=== PATIENT | male | born 1980 | race Caucasian/White ===

== ENCOUNTER 2019-01-02 15:18 | Observation (INO) | payer SELFPAY ==
--- NOTE | 2019-01-02 15:30 | EDM.PDOC ---
ED HPI GENERAL MEDICAL PROBLEM - General Chief Complaint: Behavioral/Psych Stated Complaint: CLEARANCE Time Seen by Provider: 01/02/19 15:22 - History of Present Illness INITIAL COMMENTS - FREE TEXT/NARRATIVE: HISTORY AND PHYSICAL: History of present illness: Patient is a 38-year-old male who presents status post intentional overdose of Tylenol PM approximately 2 hours prior to arrival that is qualified as having ingested approximately 20 Tylenol PM. He denies other ingestion or concern and denies other medical problems patient denies suicidal ideation at this time has been cooperative and polite and is agreeable to admission for observation and disposition as appropriate Review of systems: As per history of present illness and below otherwise all systems reviewed and negative. Past medical history: As per history of present illness and as reviewed below otherwise noncontributory. Surgical history: As per history of present illness and as reviewed below otherwise noncontributory. Social history: No reported history of drug or alcohol abuse. Family history: As per history of present illness and as reviewed below otherwise noncontributory. Physical exam: HEENT: Atraumatic, normocephalic, pupils reactive, negative for conjunctival pallor or scleral icterus, mucous membranes moist, throat clear, neck supple, nontender, trachea midline. Lungs: Clear to auscultation, breath sounds equal bilaterally, chest nontender. Heart: S1S2, regular, negative for clicks, rubs, or JVD. Abdomen: Soft, nondistended, nontender. Negative for masses or hepatosplenomegaly. Negative for costovertebral tenderness. Pelvis: Stable nontender. Genitourinary: Deferred. Rectal: Deferred. Extremities: Atraumatic, negative for cords or calf pain. Neurovascular unremarkable. Neuro: Awake, alert, oriented. Cranial nerves II through XII unremarkable. Cerebellum unremarkable. Motor and sensory unremarkable throughout. Exam nonfocal. Diagnostics: Psychiatric panel Therapeutics: IV monitor Impression: #1 intentional nonlethal overdose #2 depressive episode Definitive disposition and diagnosis as appropriate pending reevaluation and review of above. - Related Data Allergies Allergy/AdvReac Type Severity Reaction Status Date / Time No Known Allergies Allergy Verified 01/02/19 15:21 Home Meds: Home Meds . [No Known Home Meds] 01/02/19 [History] ED ROS GENERAL - Review of Systems Review Of Systems: Comprehensive ROS is negative, except as noted in HPI. ED EXAM, GENERAL - Physical Exam Exam: See Below (Dictation) Course - Orders/Labs/Meds Orders: Active Orders 24 hr Category Date Time Status EKG Documentation Completion [RC] STAT Care 01/02/19 15:23 Active ACETAMINOPHEN [CHEM] Stat Lab 01/02/19 15:23 Ordered CBC WITH AUTO DIFF [HEME] Stat Lab 01/02/19 15:23 Ordered COMPREHENSIVE METABOLIC PN,CMP [CHEM] Stat Lab 01/02/19 15:23 Ordered DRUG SCREEN, URINE [URCHEM] Stat Lab 01/02/19 15:23 Ordered ETHANOL BLOOD MEDICAL [CHEM] Stat Lab 01/02/19 15:23 Ordered SALICYLATE [CHEM] Stat Lab 01/02/19 15:23 Ordered TSH [CHEM] Stat Lab 01/02/19 15:23 Ordered UA RFX MEHREEN AND CULT IF INDIC [URIN] Stat Lab 01/02/19 15:25 Ordered Departure - Departure Time of Disposition: 15:31 Disposition: Refer to Observation Condition: Good Clinical Impression: Overdose, Depressive episode - Discharge Information - My Orders Last 24 Hours: My Active Orders 01/02/19 15:23 EKG Documentation Completion [RC] STAT ACETAMINOPHEN [CHEM] Stat CBC WITH AUTO DIFF [HEME] Stat COMPREHENSIVE METABOLIC PN,CMP [CHEM] Stat DRUG SCREEN, URINE [URCHEM] Stat ETHANOL BLOOD MEDICAL [CHEM] Stat SALICYLATE [CHEM] Stat TSH [CHEM] Stat 01/02/19 15:25 UA RFX MEHREEN AND CULT IF INDIC [URIN] Stat - Assessment/Plan Last 24 Hours: My Active Orders 01/02/19 15:23 EKG Documentation Completion [RC] STAT ACETAMINOPHEN [CHEM] Stat CBC WITH AUTO DIFF [HEME] Stat COMPREHENSIVE METABOLIC PN,CMP [CHEM] Stat DRUG SCREEN, URINE [URCHEM] Stat ETHANOL BLOOD MEDICAL [CHEM] Stat SALICYLATE [CHEM] Stat TSH [CHEM] Stat 01/02/19 15:25 UA RFX MEHREEN AND CULT IF INDIC [URIN] Stat
[2019-01-02 16:22] LABS: ACETAMINOPHEN <2.0 ug/mL
[2019-01-02 16:30] LABS: BLOOD UREA NITROGEN,BUN 24 mg/dL (7.0-18.0); CARBON DIOXIDE,CO2 23.9 mmol/L (21.0-32.0); CHLORIDE,CL 100 mmol/L (98-107); GLUCOSE RANDOM 88 mg/dL (74-106); POTASSIUM,K 3.3 mmol/L (3.5-5.1); SODIUM,NA 137 mmol/L (136-148)
--- NOTE | 2019-01-02 17:05 | CR ---
Indication: Overdose. Technique: A single AP portable view of the chest was obtained. Comparison: None Findings: The heart is normal in size. The lungs are clear. No infiltrate, pleural effusion, or pneumothorax is identified. Impression: No acute cardiopulmonary process. Dictated by Josefina Buckley MD @ Jan 02 2019 5:03PM Signed by Dr. Josefina Buckley @ Jan 02 2019 5:03PM
[2019-01-02] MEDS ORDERED: Ibuprofen 600 MG Tab PO PRN (17:48)
[2019-01-02] MEDS ORDERED: Ondansetron 4 MG Tab.DIS PO PRN (17:48)
[2019-01-02] MEDS ORDERED: Ondansetron 4 MG/2 ML SDV IVPUSH PRN (17:48)
[2019-01-02] MEDS ORDERED: Bisacodyl 5 MG Tab PO PRN (17:48)
[2019-01-02] MEDS ORDERED: Polyethylene Glycol 3350 Powder 17 GM Packet PO PRN (17:48)
[2019-01-02] MEDS ORDERED: Sodium Chloride 0.9% 10 ML Syringe FLUSH PRN (17:48)
[2019-01-02] MEDS ORDERED: Sodium Chloride 0.9% 10 ML SDV IV PRN (17:48)
[2019-01-02] MEDS ORDERED: Sodium Chloride 0.9% 2.5 ML Syringe FLUSH PRN (17:48)
[2019-01-02] MEDS ORDERED: Activated Charcoal/Water Susp 50 GM/240 ML Tube PO ONE (17:55)
[2019-01-02] MEDS ORDERED: Enoxaparin 40 MG/0.4 ML Syringe SUBCUT SCH (18:00)
[2019-01-02] MEDS ORDERED: Sodium Chloride 0.9% 1,000 ML IV SCH (18:00)
--- NOTE | 2019-01-02 18:10 | PCM.HP.2 ---
<Ediun Vergara - Last Filed: 01/02/19 18:42> H&P History of Present Illness - General Date of Service: 01/02/19 Admit Problem/Dx: Admission Diagnosis/Problem Admission Diagnosis/Problem Overdose of analgesic - History of Present Illness Initial Comments - Free Text/Narative: 38 y/o male who presented to the ER via EMS and law enforcement. Apparently, the patient had intentionally ingested a large amount of Tylenol PM. When asked how many, he states at least 16 pills. He states that he intentionally ingested the pills since he was having some family troubles. Time of ingestion was approximately 2 hours prior to ER arrival at 1500 hrs. He denies any previous attempts at hurting himself. No history of depression or anxiety. Denies taking any antidepressants or other medications. When I evaluated the patient in the ER, he was laying in bed. Eyes closed but would respond to questions. He denies any active suicidal ideation at this time. Initial acetaminophen level <2 at about 1600 hrs. Repeat acetaminophen level pending. - Related Data Allergies/Adverse Reactions: Allergies Allergy/AdvReac Type Severity Reaction Status Date / Time No Known Allergies Allergy Verified 01/02/19 18:43 Past Medical History - Past Surgical History Other Musculoskeletal Surgeries/Procedures:: Left knee pain Social & Family History - Family History Family Medical History: Noncontributory - Tobacco Use Smoking Status *Q: Never Smoker Second Hand Smoke Exposure: No - Caffeine Use Caffeine Use: Reports: None - Recreational Drug Use Recreational Drug Use: No H&P Review of Systems - Review of Systems: Review Of Systems: Comprehensive ROS is negative, except as noted in HPI. Exam - Exam Exam: See Below - Vital Signs Vital Signs: Last Vital Signs Temp 36.4 C 01/02/19 15:21 Pulse 85 01/02/19 17:50 Resp 15 01/02/19 17:50 BP 124/88 01/02/19 17:50 Pulse Ox 98 01/02/19 17:50 Weight: 81.647 kg - Exam General: Other (laying in bed with eyes closed but responds to questions. No acute distress.) HEENT: Other (dry oral mucosa) Lungs: Clear to Auscultation, Normal Respiratory Effort. No: Crackles, Wheezing Cardiovascular: Regular Rate, Regular Rhythm GI/Abdominal Exam: Normal Bowel Sounds, Soft, Non-Tender, No Distention Extremities: Normal Inspection, Non-Tender, No Pedal Edema Skin: Warm, Dry Neuro Extensive - Mental Status: Alert, Oriented x3 - Patient Data Lab Results Last 24 hrs: Laboratory Results - last 24 hr 01/02/19 01/02/19 01/02/19 Range/Units 15:55 15:55 15:55 WBC 8.06 (4.0-11.0) K/uL RBC 5.15 (4.50-5.90) M/uL Hgb 16.2 (13.0-17.0) g/dL Hct 45.5 (38.0-50.0) % MCV 88.3 (80.0-98.0) fL MCH 31.5 (27.0-32.0) pg MCHC 35.6 (31.0-37.0) g/dL RDW Std Deviation 40.3 (28.0-62.0) fl RDW Coeff of Kailash 13 (11.0-15.0) % Plt Count 298 (150-400) K/uL MPV 9.90 (7.40-12.00) fL Neut % (Auto) 62.1 (48.0-80.0) % Lymph % (Auto) 25.3 (16.0-40.0) % Burke % (Auto) 10.5 (0.0-15.0) % Eos % (Auto) 1.7 (0.0-7.0) % Baso % (Auto) 0.4 (0.0-1.5) % Neut # (Auto) 5.0 (1.4-5.7) K/uL Lymph # (Auto) 2.0 (0.6-2.4) K/uL Burke # (Auto) 0.9 H (0.0-0.8) K/uL Eos # (Auto) 0.1 (0.0-0.7) K/uL Baso # (Auto) 0.0 (0.0-0.1) K/uL Nucleated RBC % 0.0 /100WBC Nucleated RBCs # 0 K/uL INR 1.03 Sodium 137 (136-148) mmol/L Potassium 3.3 L (3.5-5.1) mmol/L Chloride 100 (98-107) mmol/L Carbon Dioxide 23.9 (21.0-32.0) mmol/L BUN 24 H (7.0-18.0) mg/dL Creatinine 1.2 (0.8-1.3) mg/dL Est Cr Clr Drug Dosing 85.34 mL/min Estimated GFR (MDRD) > 60.0 ml/min Glucose 88 (74-106) mg/dL Calcium 9.2 (8.5-10.1) mg/dL Total Bilirubin 1.2 H (0.2-1.0) mg/dL AST 41 H (15-37) IU/L ALT 35 (14-63) IU/L Alkaline Phosphatase 80 (46-116) U/L Total Protein 8.1 (6.4-8.2) g/dL Albumin 4.4 (3.4-5.0) g/dL Globulin 3.7 (2.6-4.0) g/dL Albumin/Globulin Ratio 1.2 (0.9-1.6) TSH 3rd Generation 1.61 (0.36-3.74) uIU/mL Salicylates 1.5 (0-20) mg/dL Acetaminophen <2.0 ug/mL Ethyl Alcohol 4 mg/dL Result Diagrams: 01/02/19 15:55 01/02/19 15:55 Problem List Initiated/Reviewed/Updated: Yes Orders Last 24hrs: Active Orders 24 hr Category Date Time Status Patient Status [ADT] Stat ADT 01/02/19 17:44 Active EKG Documentation Completion [RC] STAT Care 01/02/19 15:23 Active Intake and Output [RC] QSHIFT Care 01/02/19 17:49 Active Oxygen Therapy [RC] PRN Care 01/02/19 17:48 Active Up ad Fanny [RC] ASDIRECTED Care 01/02/19 17:48 Active VTE/DVT Education [RC] PER UNIT ROUTINE Care 01/02/19 17:48 Active Vital Signs [RC] Q4H Care 01/02/19 17:48 Active Regular Diet [DIET] Diet 01/02/19 Dinner Active CBC WITH AUTO DIFF [HEME] AM Lab 01/03/19 05:11 Ordered CBC WITH AUTO DIFF [HEME] AM Lab 01/04/19 05:11 Ordered CBC WITH AUTO DIFF [HEME] AM Lab 01/05/19 05:11 Ordered CMP [COMPREHENSIVE METABOLIC PN,CMP] [CHEM] Q6H Lab 01/02/19 22:00 Ordered CMP [COMPREHENSIVE METABOLIC PN,CMP] [CHEM] Q6H Lab 01/03/19 04:00 Ordered CMP [COMPREHENSIVE METABOLIC PN,CMP] [CHEM] Q6H Lab 01/03/19 10:00 Ordered CMP [COMPREHENSIVE METABOLIC PN,CMP] [CHEM] Q6H Lab 01/03/19 16:00 Ordered DRUG SCREEN, URINE [URCHEM] Stat Lab 01/02/19 15:23 Ordered INR,PT,PROTHROMBIN TIME [COAG] Q6H Lab 01/02/19 22:00 Ordered INR,PT,PROTHROMBIN TIME [COAG] Q6H Lab 01/03/19 04:00 Ordered INR,PT,PROTHROMBIN TIME [COAG] Q6H Lab 01/03/19 10:00 Ordered INR,PT,PROTHROMBIN TIME [COAG] Q6H Lab 01/03/19 16:00 Ordered UA RFX MEHREEN AND CULT IF INDIC [URIN] Stat Lab 01/02/19 15:25 Ordered Bisacodyl [Dulcolax] Med 01/02/19 17:48 Active 5 mg PO DAILY PRN Enoxaparin [Lovenox] Med 01/02/19 18:00 Active 40 mg SUBCUT Q24H Ibuprofen [Motrin] Med 01/02/19 17:48 Active 600 mg PO Q6H PRN Ondansetron [Zofran ODT] Med 01/02/19 17:48 Active 4 mg PO Q4H PRN Ondansetron [Zofran] Med 01/02/19 17:48 Active 4 mg IVPUSH Q4H PRN Polyethylene Glycol 3350 [MiraLAX] Med 01/02/19 17:48 Active 17 gm PO DAILY PRN Sodium Chloride 0.9% [Normal Saline] Med 01/02/19 17:48 Active 10 ml IV ASDIRECTED PRN Sodium Chloride 0.9% [Normal Saline] 1,000 ml Med 01/02/19 18:00 Active IV BOLUS Sodium Chloride 0.9% [Saline Flush] Med 01/02/19 17:48 Active 10 ml FLUSH ASDIRECTED PRN Sodium Chloride 0.9% [Saline Flush] Med 01/02/19 17:48 Active 2.5 ml FLUSH ASDIRECTED PRN Peripheral IV Insertion Adult [OM.PC] Routine Oth 01/02/19 17:48 Ordered Saline Lock Insert [OM.PC] Routine Oth 01/02/19 17:48 Ordered Resuscitation Status Routine Resus Stat 01/02/19 17:48 Ordered Medication Orders Bisacodyl (Dulcolax) 5 mg PO DAILY PRN PRN Reason: Constipation Enoxaparin Sodium (Lovenox) 40 mg SUBCUT Q24H DEBRA Sodium Chloride (Normal Saline) 1,000 mls @ 999 mls/hr IV BOLUS DEBRA Last Admin: 01/02/19 17:55 Dose: 999 mls/hr Ibuprofen (Motrin) 600 mg PO Q6H PRN PRN Reason: Pain (mild 1-3) Ondansetron HCl (Zofran Odt) 4 mg PO Q4H PRN PRN Reason: nausea, able to take PO Ondansetron HCl (Zofran) 4 mg IVPUSH Q4H PRN PRN Reason: Nausea Polyethylene Glycol (Miralax) 17 gm PO DAILY PRN PRN Reason: Constipation Sodium Chloride (Saline Flush) 10 ml FLUSH ASDIRECTED PRN PRN Reason: Keep Vein Open Sodium Chloride (Saline Flush) 2.5 ml FLUSH ASDIRECTED PRN PRN Reason: Keep Vein Open Sodium Chloride (Normal Saline) 10 ml IV ASDIRECTED PRN PRN Reason: IV Use Assessment/Plan Comment:: A: 1. Acetaminophen overdose, intentional 2. Acute kidney injury 3. Hypokalemia P: 1. Contacted Poison Control and they recommended repeating acetaminophen level. will hold off on NAC for now until repeat level and will re-evaluate then. Will bolus 2 liter NS. Maintenance 125 ml/hr NS. Serial LFT, INR, acetaminophen levels. Will need to contact tele psych on Friday for evaluation. Dispo: 2-3 days <Todd Cervantes - Last Filed: 01/04/19 19:47> H&P History of Present Illness - General Admit Problem/Dx: Admission Diagnosis/Problem Admission Diagnosis/Problem Overdose of analgesic Exam - Vital Signs Vital Signs: Last Vital Signs Temp 36.5 C 01/03/19 07:44 Pulse 83 01/03/19 07:44 Resp 16 01/03/19 07:44 BP 119/71 01/03/19 07:44 Pulse Ox 97 01/03/19 07:44 - Patient Data Result Diagrams: 01/03/19 05:58 01/03/19 05:58 - Problem List (1) Tylenol overdose SNOMED Code(s): 525581499 ICD Code: T39.1X1A - POISONING BY 4-AMINOPHENOL DERIVATIVES, ACCIDENTAL, INIT Status: Acute Assessment/Plan Comment:: I performed a history and physical exam of the patient and discussed management with resident. I have reviewed the residents note and agree with documented findings and plan unless otherwise specified in my note.
[2019-01-02] MEDS: Sodium Chloride 0.9% 1,000 ML IV SCH (19:20)
[2019-01-02 22:15] LABS: ACETAMINOPHEN 10.8 ug/mL
[2019-01-02 22:28] LABS: BLOOD UREA NITROGEN,BUN 18 mg/dL (7.0-18.0); CARBON DIOXIDE,CO2 23.4 mmol/L (21.0-32.0); CHLORIDE,CL 106 mmol/L (98-107); GLUCOSE RANDOM 91 mg/dL (74-106); POTASSIUM,K 3.2 mmol/L (3.5-5.1); SODIUM,NA 139 mmol/L (136-148)
[2019-01-03] MEDS: Sodium Chloride 0.9% 1,000 ML IV SCH (02:00)
[2019-01-03 06:25] LABS: BLOOD UREA NITROGEN,BUN 15 mg/dL (7.0-18.0); CARBON DIOXIDE,CO2 25.9 mmol/L (21.0-32.0); CHLORIDE,CL 108 mmol/L (98-107); GLUCOSE RANDOM 92 mg/dL (74-106); POTASSIUM,K 3.5 mmol/L (3.5-5.1); SODIUM,NA 142 mmol/L (136-148)
--- NOTE | 2019-01-03 11:51 | PCM.DCSUM1 ---
Discharge Summary - Hospital Course Free Text/Narrative:: 38 y/o male who presented to the ER via EMS and law enforcement. Apparently, the patient had intentionally ingested a large amount of Tylenol PM. When asked how many, he states at least 16 pills. He states that he intentionally ingested the pills since he was having some family troubles. Time of ingestion was approximately 2 hours prior to ER arrival at 1500 hrs. Patient states he did try self induced vomit and was able to vomit most of the pills. He denies any previous attempts at hurting himself. No history of depression or anxiety. Denies taking any antidepressants or other medications. Poison control was contacted, recommended trending Tylenol level at 4 hour kym and also trend LFTs. Patients Liver enzymes were unremarkable, Tylenol level was not significantly elevated. No active suicidality, states he feel guilty he tried to hurt him self. I counseled the patient to see a psychiatrist and PCP. Patient in agreement. Patient is medically stable to be discharged home and recommended to fu with PCP, psychiatry and repeat LFT in 1 week. Diagnosis: Stroke: No - Discharge Data Discharge Date: 01/03/19 Discharge Disposition: Home, Self-Care 01 Condition: Stable - Referral to Home Health Primary Care Physician: PCP Unknown - Discharge Diagnosis/Problem(s) (1) Tylenol overdose SNOMED Code(s): 716488440 ICD Code: T39.1X1A - POISONING BY 4-AMINOPHENOL DERIVATIVES, ACCIDENTAL, INIT Status: Acute Current Visit: Yes - Patient Instructions Diet: Regular Diet as Tolerated Activity: As Tolerated Driving: May Drive Today Showering/Bathing: May Shower Notify Provider of: Increased Pain, Nausea and/or Vomiting - Discharge Plan *PRESCRIPTION DRUG MONITORING PROGRAM REVIEWED*: No *COPY OF PRESCRIPTION DRUG MONITORING REPORT IN PATIENT THANG: No Patient Handouts: Acetaminophen Overdose, Living With Depression Referrals: [facility] [Ordering Only Provider] - (Call on Friday to make a hospital follow-up. This was not done for you due to it being the weekend.) - Discharge Summary/Plan Comment DC Time >30 min.: No - General Info Date of Service: 01/03/19 Functional Status: Reports: Tolerating Diet, Ambulating, Urinating - Review of Systems General: Denies: Fever, Weakness HEENT: Denies: Contact Lenses, Dysphasia Pulmonary: Denies: Shortness of Breath, Pleuritic Chest Pain Gastrointestinal: Denies: Abdominal Pain, Constipation, Decreased Appetite, Diarrhea, Difficulty Swallowing, Nausea, Vomiting Musculoskeletal: Denies: Neck Pain, Shoulder Pain, Arm Pain Skin: Denies: Cyanosis, Jaundice, Mottled, Pallor Neurological: Denies: Confusion, Dizziness, Headache Psychiatric: Denies: Confusion, Depression, Mood Lability, Anxiety - Patient Data Vitals - Most Recent: Last Vital Signs Temp 36.5 C 01/03/19 07:44 Pulse 83 01/03/19 07:44 Resp 16 01/03/19 07:44 BP 119/71 01/03/19 07:44 Pulse Ox 97 01/03/19 07:44 Weight - Most Recent: 81.647 kg I&O - Last 24 hours: Intake & Output 01/02/19 01/03/19 01/03/19 22:59 06:59 14:59 Intake Total 1999 1058 Balance 1999 1058 Lab Results - Last 24 hrs: Laboratory Results - last 24 hr 01/02/19 01/02/19 01/02/19 Range/Units 15:55 15:55 15:55 WBC 8.06 (4.0-11.0) K/uL RBC 5.15 (4.50-5.90) M/uL Hgb 16.2 (13.0-17.0) g/dL Hct 45.5 (38.0-50.0) % MCV 88.3 (80.0-98.0) fL MCH 31.5 (27.0-32.0) pg MCHC 35.6 (31.0-37.0) g/dL RDW Std Deviation 40.3 (28.0-62.0) fl RDW Coeff of Kailash 13 (11.0-15.0) % Plt Count 298 (150-400) K/uL MPV 9.90 (7.40-12.00) fL Neut % (Auto) 62.1 (48.0-80.0) % Lymph % (Auto) 25.3 (16.0-40.0) % [place] % (Auto) 10.5 (0.0-15.0) % Eos % (Auto) 1.7 (0.0-7.0) % Baso % (Auto) 0.4 (0.0-1.5) % Neut # (Auto) 5.0 (1.4-5.7) K/uL Lymph # (Auto) 2.0 (0.6-2.4) K/uL [place] # (Auto) 0.9 H (0.0-0.8) K/uL Eos # (Auto) 0.1 (0.0-0.7) K/uL Baso # (Auto) 0.0 (0.0-0.1) K/uL Nucleated RBC % 0.0 /100WBC Nucleated RBCs # 0 K/uL INR 1.03 Sodium 137 (136-148) mmol/L Potassium 3.3 L (3.5-5.1) mmol/L Chloride 100 (98-107) mmol/L Carbon Dioxide 23.9 (21.0-32.0) mmol/L BUN 24 H (7.0-18.0) mg/dL Creatinine 1.2 (0.8-1.3) mg/dL Est Cr Clr Drug Dosing 85.34 mL/min Estimated GFR (MDRD) > 60.0 ml/min Glucose 88 (74-106) mg/dL Calcium 9.2 (8.5-10.1) mg/dL Phosphorus (2.6-4.7) mg/dL Magnesium (1.8-2.4) mg/dL Total Bilirubin 1.2 H (0.2-1.0) mg/dL AST 41 H (15-37) IU/L ALT 35 (14-63) IU/L Alkaline Phosphatase 80 (46-116) U/L Total Protein 8.1 (6.4-8.2) g/dL Albumin 4.4 (3.4-5.0) g/dL Globulin 3.7 (2.6-4.0) g/dL Albumin/Globulin Ratio 1.2 (0.9-1.6) TSH 3rd Generation 1.61 (0.36-3.74) uIU/mL Urine Color Urine Appearance Urine pH (5.0-8.0) Ur Specific Coleman (1.001-1.035) Urine Protein (NEGATIVE) mg/dL Urine Glucose (UA) (NEGATIVE) mg/dL Urine Ketones (NEGATIVE) mg/dL Urine Occult Blood (NEGATIVE) Urine Nitrite (NEGATIVE) Urine Bilirubin (NEGATIVE) Urine Urobilinogen (<2.0) EU/dL Ur Leukocyte Esterase (NEGATIVE) Urine RBC (0-2/HPF) Urine WBC (0-5/HPF) Ur Epithelial Cells (NONE-FEW) Urine Bacteria (NEGATIVE) Hyaline Casts (0-2/LPF) Urine Mucus (NONE-MOD) Salicylates 1.5 (0-20) mg/dL Urine Opiates Screen (NEGATIVE) Ur Oxycodone Screen (NEGATIVE) Urine Methadone Screen (NEGATIVE) Acetaminophen <2.0 ug/mL Ur Barbiturates Screen (NEGATIVE) Ur Phencyclidine Scrn (NEGATIVE) Ur Amphetamine Screen (NEGATIVE) U Methamphetamines Scrn (NEGATIVE) U Benzodiazepines Scrn (NEGATIVE) U Cocaine Metab Screen (NEGATIVE) U Marijuana (THC) Screen (NEGATIVE) Ethyl Alcohol 4 mg/dL 01/02/19 01/02/19 01/02/19 Range/Units 17:27 17:27 21:38 WBC (4.0-11.0) K/uL RBC (4.50-5.90) M/uL Hgb (13.0-17.0) g/dL Hct (38.0-50.0) % MCV (80.0-98.0) fL MCH (27.0-32.0) pg MCHC (31.0-37.0) g/dL RDW Std Deviation (28.0-62.0) fl RDW Coeff of Kailash (11.0-15.0) % Plt Count (150-400) K/uL MPV (7.40-12.00) fL Neut % (Auto) (48.0-80.0) % Lymph % (Auto) (16.0-40.0) % [place] % (Auto) (0.0-15.0) % Eos % (Auto) (0.0-7.0) % Baso % (Auto) (0.0-1.5) % Neut # (Auto) (1.4-5.7) K/uL Lymph # (Auto) (0.6-2.4) K/uL [place] # (Auto) (0.0-0.8) K/uL Eos # (Auto) (0.0-0.7) K/uL Baso # (Auto) (0.0-0.1) K/uL Nucleated RBC % /100WBC Nucleated RBCs # K/uL INR Sodium 139 (136-148) mmol/L Potassium 3.2 L (3.5-5.1) mmol/L Chloride 106 (98-107) mmol/L Carbon Dioxide 23.4 (21.0-32.0) mmol/L BUN 18 (7.0-18.0) mg/dL Creatinine 1.0 (0.8-1.3) mg/dL Est Cr Clr Drug Dosing 102.40 mL/min Estimated GFR (MDRD) > 60.0 ml/min Glucose 91 (74-106) mg/dL Calcium 8.0 L (8.5-10.1) mg/dL Phosphorus (2.6-4.7) mg/dL Magnesium 2.5 H (1.8-2.4) mg/dL Total Bilirubin 0.9 (0.2-1.0) mg/dL AST 29 (15-37) IU/L ALT 30 (14-63) IU/L Alkaline Phosphatase 66 (46-116) U/L Total Protein 6.5 (6.4-8.2) g/dL Albumin 3.5 (3.4-5.0) g/dL Globulin 3.0 (2.6-4.0) g/dL Albumin/Globulin Ratio 1.2 (0.9-1.6) TSH 3rd Generation (0.36-3.74) uIU/mL Urine Color Urine Appearance Urine pH (5.0-8.0) Ur Specific Coleman (1.001-1.035) Urine Protein (NEGATIVE) mg/dL Urine Glucose (UA) (NEGATIVE) mg/dL Urine Ketones (NEGATIVE) mg/dL Urine Occult Blood (NEGATIVE) Urine Nitrite (NEGATIVE) Urine Bilirubin (NEGATIVE) Urine Urobilinogen (<2.0) EU/dL Ur Leukocyte Esterase (NEGATIVE) Urine RBC (0-2/HPF) Urine WBC (0-5/HPF) Ur Epithelial Cells (NONE-FEW) Urine Bacteria (NEGATIVE) Hyaline Casts (0-2/LPF) Urine Mucus (NONE-MOD) Salicylates (0-20) mg/dL Urine Opiates Screen (NEGATIVE) Ur Oxycodone Screen (NEGATIVE) Urine Methadone Screen (NEGATIVE) Acetaminophen 12.9 10.8 ug/mL Ur Barbiturates Screen (NEGATIVE) Ur Phencyclidine Scrn (NEGATIVE) Ur Amphetamine Screen (NEGATIVE) U Methamphetamines Scrn (NEGATIVE) U Benzodiazepines Scrn (NEGATIVE) U Cocaine Metab Screen (NEGATIVE) U Marijuana (THC) Screen (NEGATIVE) Ethyl Alcohol mg/dL 01/02/19 01/03/19 01/03/19 Range/Units 21:38 04:00 04:00 WBC (4.0-11.0) K/uL RBC (4.50-5.90) M/uL Hgb (13.0-17.0) g/dL Hct (38.0-50.0) % MCV (80.0-98.0) fL MCH (27.0-32.0) pg MCHC (31.0-37.0) g/dL RDW Std Deviation (28.0-62.0) fl RDW Coeff of Kailash (11.0-15.0) % Plt Count (150-400) K/uL MPV (7.40-12.00) fL Neut % (Auto) (48.0-80.0) % Lymph % (Auto) (16.0-40.0) % [place] % (Auto) (0.0-15.0) % Eos % (Auto) (0.0-7.0) % Baso % (Auto) (0.0-1.5) % Neut # (Auto) (1.4-5.7) K/uL Lymph # (Auto) (0.6-2.4) K/uL [place] # (Auto) (0.0-0.8) K/uL Eos # (Auto) (0.0-0.7) K/uL Baso # (Auto) (0.0-0.1) K/uL Nucleated RBC % /100WBC Nucleated RBCs # K/uL INR 1.08 Sodium (136-148) mmol/L Potassium (3.5-5.1) mmol/L Chloride (98-107) mmol/L Carbon Dioxide (21.0-32.0) mmol/L BUN (7.0-18.0) mg/dL Creatinine (0.8-1.3) mg/dL Est Cr Clr Drug Dosing mL/min Estimated GFR (MDRD) ml/min Glucose (74-106) mg/dL Calcium (8.5-10.1) mg/dL Phosphorus (2.6-4.7) mg/dL Magnesium (1.8-2.4) mg/dL Total Bilirubin (0.2-1.0) mg/dL AST (15-37) IU/L ALT (14-63) IU/L Alkaline Phosphatase (46-116) U/L Total Protein (6.4-8.2) g/dL Albumin (3.4-5.0) g/dL Globulin (2.6-4.0) g/dL Albumin/Globulin Ratio (0.9-1.6) TSH 3rd Generation (0.36-3.74) uIU/mL Urine Color YELLOW Urine Appearance SLT CLOUDY Urine pH 6.0 (5.0-8.0) Ur Specific Coleman >= 1.030 (1.001-1.035) Urine Protein TRACE H (NEGATIVE) mg/dL Urine Glucose (UA) NEGATIVE (NEGATIVE) mg/dL Urine Ketones 15 H (NEGATIVE) mg/dL Urine Occult Blood NEGATIVE (NEGATIVE) Urine Nitrite NEGATIVE (NEGATIVE) Urine Bilirubin SMALL H (NEGATIVE) Urine Urobilinogen 1.0 (<2.0) EU/dL Ur Leukocyte Esterase NEGATIVE (NEGATIVE) Urine RBC 0-1 (0-2/HPF) Urine WBC 0-2 (0-5/HPF) Ur Epithelial Cells FEW (NONE-FEW) Urine Bacteria RARE (NEGATIVE) Hyaline Casts 1-3 (0-2/LPF) Urine Mucus LIGHT (NONE-MOD) Salicylates (0-20) mg/dL Urine Opiates Screen NEGATIVE (NEGATIVE) Ur Oxycodone Screen NEGATIVE (NEGATIVE) Urine Methadone Screen NEGATIVE (NEGATIVE) Acetaminophen ug/mL Ur Barbiturates Screen NEGATIVE (NEGATIVE) Ur Phencyclidine Scrn NEGATIVE (NEGATIVE) Ur Amphetamine Screen POSITIVE (NEGATIVE) U Methamphetamines Scrn POSITIVE (NEGATIVE) U Benzodiazepines Scrn NEGATIVE (NEGATIVE) U Cocaine Metab Screen NEGATIVE (NEGATIVE) U Marijuana (THC) Screen NEGATIVE (NEGATIVE) Ethyl Alcohol mg/dL 01/03/19 01/03/19 Range/Units 05:58 05:58 WBC 6.04 (4.0-11.0) K/uL RBC 4.53 (4.50-5.90) M/uL Hgb 14.3 (13.0-17.0) g/dL Hct 41.7 (38.0-50.0) % MCV 92.1 (80.0-98.0) fL MCH 31.6 (27.0-32.0) pg MCHC 34.3 (31.0-37.0) g/dL RDW Std Deviation 43.8 (28.0-62.0) fl RDW Coeff of Kailash 13 (11.0-15.0) % Plt Count 277 (150-400) K/uL MPV 9.80 (7.40-12.00) fL Neut % (Auto) 54.3 (48.0-80.0) % Lymph % (Auto) 31.3 (16.0-40.0) % [place] % (Auto) 10.1 (0.0-15.0) % Eos % (Auto) 4.0 (0.0-7.0) % Baso % (Auto) 0.3 (0.0-1.5) % Neut # (Auto) 3.3 (1.4-5.7) K/uL Lymph # (Auto) 1.9 (0.6-2.4) K/uL [place] # (Auto) 0.6 (0.0-0.8) K/uL Eos # (Auto) 0.2 (0.0-0.7) K/uL Baso # (Auto) 0.0 (0.0-0.1) K/uL Nucleated RBC % 0.0 /100WBC Nucleated RBCs # 0 K/uL INR Sodium 142 (136-148) mmol/L Potassium 3.5 (3.5-5.1) mmol/L Chloride 108 H (98-107) mmol/L Carbon Dioxide 25.9 (21.0-32.0) mmol/L BUN 15 (7.0-18.0) mg/dL Creatinine 1.1 (0.8-1.3) mg/dL Est Cr Clr Drug Dosing 93.09 mL/min Estimated GFR (MDRD) > 60.0 ml/min Glucose 92 (74-106) mg/dL Calcium 8.0 L (8.5-10.1) mg/dL Phosphorus 3.1 (2.6-4.7) mg/dL Magnesium 2.3 (1.8-2.4) mg/dL Total Bilirubin 0.8 (0.2-1.0) mg/dL AST 26 (15-37) IU/L ALT 31 (14-63) IU/L Alkaline Phosphatase 60 (46-116) U/L Total Protein 6.3 L (6.4-8.2) g/dL Albumin 3.3 L (3.4-5.0) g/dL Globulin 3.0 (2.6-4.0) g/dL Albumin/Globulin Ratio 1.1 (0.9-1.6) TSH 3rd Generation (0.36-3.74) uIU/mL Urine Color Urine Appearance Urine pH (5.0-8.0) Ur Specific Coleman (1.001-1.035) Urine Protein (NEGATIVE) mg/dL Urine Glucose (UA) (NEGATIVE) mg/dL Urine Ketones (NEGATIVE) mg/dL Urine Occult Blood (NEGATIVE) Urine Nitrite (NEGATIVE) Urine Bilirubin (NEGATIVE) Urine Urobilinogen (<2.0) EU/dL Ur Leukocyte Esterase (NEGATIVE) Urine RBC (0-2/HPF) Urine WBC (0-5/HPF) Ur Epithelial Cells (NONE-FEW) Urine Bacteria (NEGATIVE) Hyaline Casts (0-2/LPF) Urine Mucus (NONE-MOD) Salicylates (0-20) mg/dL Urine Opiates Screen (NEGATIVE) Ur Oxycodone Screen (NEGATIVE) Urine Methadone Screen (NEGATIVE) Acetaminophen ug/mL Ur Barbiturates Screen (NEGATIVE) Ur Phencyclidine Scrn (NEGATIVE) Ur Amphetamine Screen (NEGATIVE) U Methamphetamines Scrn (NEGATIVE) U Benzodiazepines Scrn (NEGATIVE) U Cocaine Metab Screen (NEGATIVE) U Marijuana (THC) Screen (NEGATIVE) Ethyl Alcohol mg/dL Med Orders - Current: Current Medications Bisacodyl (Dulcolax) 5 mg PO DAILY PRN PRN Reason: Constipation Enoxaparin Sodium (Lovenox) 40 mg SUBCUT Q24H [facility] Last Admin: 01/02/19 18:42 Dose: 40 mg Sodium Chloride (Normal Saline) 1,000 mls @ 999 mls/hr IV BOLUS [facility] Stop: 01/03/19 19:01 Last Admin: 01/02/19 17:55 Dose: 999 mls/hr Sodium Chloride (Normal Saline) 1,000 mls @ 125 mls/hr IV ASDIRECTED [facility] Last Admin: 01/03/19 02:00 Dose: 125 mls/hr Ondansetron HCl (Zofran Odt) 4 mg PO Q4H PRN PRN Reason: nausea, able to take PO Ondansetron HCl (Zofran) 4 mg IVPUSH Q4H PRN PRN Reason: Nausea Polyethylene Glycol (Miralax) 17 gm PO DAILY PRN PRN Reason: Constipation Sodium Chloride (Saline Flush) 10 ml FLUSH ASDIRECTED PRN PRN Reason: Keep Vein Open Sodium Chloride (Saline Flush) 2.5 ml FLUSH ASDIRECTED PRN PRN Reason: Keep Vein Open Sodium Chloride (Normal Saline) 10 ml IV ASDIRECTED PRN PRN Reason: IV Use Discontinued Medications Charcoal (Actidose-Aqua) 50 gm PO STAT ONE Stop: 01/02/19 17:56 Last Admin: 01/02/19 18:56 Dose: Not Given Ibuprofen (Motrin) 600 mg PO Q6H PRN PRN Reason: Pain (mild 1-3) - Exam General: Reports: Alert, Oriented HEENT: Reports: Pupils Equal Lungs: Reports: Clear to Auscultation, Normal Respiratory Effort Cardiovascular: Reports: Regular Rate, Regular Rhythm GI/Abdominal Exam: Normal Bowel Sounds, Soft, Non-Tender, No Organomegaly, No Distention Extremities: Normal Inspection Skin: Reports: Warm, Intact
== END 2019-01-03 12:05 | disposition home or self-care (01) ==
LOC: MW.ED 15:18 → MW.MS 18:19
PROVIDERS: ADMIT Student in an Organized Health Care Education/Training Program; ATTEND Student in an Organized Health Care Education/Training Program
DX: T39.1X2A Poisoning by 4-Aminophenol derivatives, intentional self-harm, initial encounter (principal); N17.9 Acute kidney failure, unspecified; E87.6 Hypokalemia
CPT/HCPCS: 36415; 71045; 80053; 80305; 80320; 80329; 81001; 83735; 84100; 84443; 85025; 85610; 93005; 99285; J1650; J7040; 96360; 96361; 96372; 99284; G0378; G0480; J7030

== ENCOUNTER 2019-01-08 | Emergency (ER) | payer SELFPAY ==
[2019-01-08] MEDS ORDERED: cefTRIAXone 1 GM Vial IM ONE (00:21)
[2019-01-08] MEDS ORDERED: cefTRIAXone 1 GM in Lidocaine 1% 4 ML IM ONE (00:30)
--- NOTE | 2019-01-08 00:37 | EDM.PDOC ---
ED HPI GENERAL MEDICAL PROBLEM - General Chief Complaint: Upper Extremity Injury/Pain Stated Complaint: RIGHT INDEX FINGER SWOLLEN Time Seen by Provider: 01/08/19 00:34 Source of Information: Reports: Patient - History of Present Illness INITIAL COMMENTS - FREE TEXT/NARRATIVE: HISTORY AND PHYSICAL: History of present illness: []Patient presents with cellulitis of his right index finger as well as small abscess was able to [place] drain a small amount of purulence from the digit, the distal thumb had a foul and as well I did camilo this both were sampled for culture patient has no fever nausea vomiting chills sweats did provide Rocephin 1 g and placed him on Bactrim In 48 hours for recheck 1 Review of systems: As per history of present illness and below otherwise all systems reviewed and negative. Past medical history: As per history of present illness and as reviewed below otherwise noncontributory. Surgical history: As per history of present illness and as reviewed below otherwise noncontributory. Social history: No reported history of drug or alcohol abuse. Family history: As per history of present illness and as reviewed below otherwise noncontributory. Physical exam: HEENT: Atraumatic, normocephalic, pupils reactive, negative for conjunctival pallor or scleral icterus, mucous membranes moist, throat clear, neck supple, nontender, trachea midline. Lungs: Clear to auscultation, breath sounds equal bilaterally, chest nontender. Heart: S1S2, regular, negative for clicks, rubs, or JVD. Abdomen: Soft, nondistended, nontender. Negative for masses or hepatosplenomegaly. Negative for costovertebral tenderness. Pelvis: Stable nontender. Genitourinary: Deferred. Rectal: Deferred. Extremities: Atraumatic, negative for cords or calf pain. Neurovascular unremarkable. Neuro: Awake, alert, oriented. Cranial nerves II through XII unremarkable. Cerebellum unremarkable. Motor and sensory unremarkable throughout. Exam nonfocal. Skin as per history of present illness right index finger cellulitis with small pimple-like abscess that was drained with applied pressure, he did have a distal felon on the right thumb did camilo this was with an 18-gauge needle expressing purulence no redness or warmth involving the thumb entirely limb is neurovascularly intact Diagnostics: [] one culture 2 Therapeutics: [] Rocephin Bactrim Impression: [ total felon right thumb Cellulitis right index finger ] Definitive disposition and diagnosis as appropriate pending reevaluation and review of above. Treatments [employer]: Reports: Acetaminophen right index Pain Score (Numeric/FACES): 10 - Related Data Allergies Allergy/AdvReac Type Severity Reaction Status Date / Time No Known Allergies Allergy Verified 01/08/19 00:15 Home Meds: Home Meds . [No Known Home Meds] 01/08/19 [History] Past Medical History - Past Surgical History Other Musculoskeletal Surgeries/Procedures:: Left knee pain Social & Family History - Family History Family Medical History: Noncontributory - Caffeine Use Caffeine Use: Reports: None Review of Systems - Review of Systems Review Of Systems: See Below ED EXAM, GENERAL - Physical Exam Exam: See Below Course - Vital Signs Last Recorded V/S: Last Vital Signs Temp 97 F 01/08/19 00:10 Pulse 107 H 01/08/19 00:10 Resp 18 01/08/19 00:10 BP 116/72 01/08/19 00:10 Pulse Ox 99 01/08/19 00:10 - Orders/Labs/Meds Meds: Medications Discontinued Medications Generic Name Dose Route Start Last Admin Trade Name Freq PRN Reason Stop Dose Admin Ceftriaxone Sodium 1 gm 01/08/19 00:21 Rocephin IM 01/08/19 00:22 ONETIME ONE Ceftriaxone Sodium 1 gm/ 4 mls @ 4 mls/sec 01/08/19 00:30 Lidocaine HCl IM 01/08/19 00:31 ONETIME ONE Departure - Departure Time of Disposition: 00:36 Disposition: Home, Self-Care 01 Condition: Good Clinical Impression: Cellulitis, Cellulitis and abscess of finger, unspecified - Discharge Information Referrals: PCP,None [Primary Care Provider] - Additional Instructions: Medication as prescribed Return if symptoms persist or worsen Follow-up with primary care in 48 hours for recheck [facility] - Primary [facility] [address] [place] [address] The following information is given to patients seen in the emergency department who are being discharged to home. This information is to outline your options for follow-up care. We provide all patients seen in our emergency department with a follow-up referral. The need for follow-up, as well as the timing and circumstances, are variable depending upon the specifics of your emergency department visit. If you don't have a primary care physician on staff, we will provide you with a referral. We always advise you to contact your personal physician following an emergency department visit to inform them of the circumstance of the visit and for follow-up with them and/or the need for any referrals to a consulting specialist. The emergency department will also refer you to a specialist when appropriate. This referral assures that you have the opportunity for follow-up care with a specialist. All of these measure are taken in an effort to provide you with optimal care, which includes your follow-up. Under all circumstances we always encourage you to contact your private physician who remains a resource for coordinating your care. When calling for follow-up care, please make the office aware that this follow-up is from your recent emergency room visit. If for any reason you are refused follow-up, please contact the [facility] emergency department at and asked to speak to the emergency department charge nurse.
== END 2019-01-08 01:00 | disposition home or self-care (01) ==
LOC: MW.ED
DX: L03.011 Cellulitis of right finger (principal); L02.511 Cutaneous abscess of right hand
CPT/HCPCS: 87070; 87077; 87186; 96372; 99283; J0696; J2001

== ENCOUNTER 2019-01-09 10:13 | Emergency (ER) | payer SELFPAY ==
[2019-01-09] MEDS ORDERED: Sodium Chloride 0.9% 2.5 ML Syringe FLUSH PRN (10:28)
[2019-01-09] MEDS ORDERED: Sodium Chloride 0.9% 10 ML Syringe FLUSH PRN (10:28)
--- NOTE | 2019-01-09 10:39 | EDM.PDOC ---
ED HPI GENERAL MEDICAL PROBLEM - General Chief Complaint: Skin Complaint Stated Complaint: RT HAND;RT FINGER ISSUE Time Seen by Provider: 01/09/19 10:38 Source of Information: Reports: Patient History Limitations: Reports: No Limitations - History of Present Illness INITIAL COMMENTS - FREE TEXT/NARRATIVE: HISTORY AND PHYSICAL: History of present illness: Patient is a 38-year-old male presents to the ED with complaint of hand infection. Patient was seen in the ED yesterday and had a small abscess on his right thumb and one on his right pointer finger that were drained and cultured. He was given IM Rocephin and prescription for bactrim. He states he has had a couple of doses of bactrim but infection is getting worse and redness is spreading down his hand. He states he has been feeling achy but denies fevers or chills. Review of systems: As per history of present illness and below otherwise all systems reviewed and negative. Past medical history: As per history of present illness and as reviewed below otherwise noncontributory. Surgical history: As per history of present illness and as reviewed below otherwise noncontributory. Social history: No reported history of drug or alcohol abuse. Family history: As per history of present illness and as reviewed below otherwise noncontributory. Physical exam: General: Patient sitting comfortably in no acute distress and nontoxic appearing HEENT: Atraumatic, normocephalic, pupils reactive, negative for conjunctival pallor or scleral icterus, mucous membranes moist, throat clear, neck supple, nontender, trachea midline. No meningeal signs. Lungs: Clear to auscultation, breath sounds equal bilaterally, chest nontender. Heart: S1S2, regular, negative for clicks, rubs, or overt murmur. Abdomen: Soft, nondistended, nontender. Negative for masses or hepatosplenomegaly. Negative for costovertebral tenderness. No rigidity, rebound , guarding. Pelvis: Stable nontender. Genitourinary: Deferred. Rectal: Deferred. Extremities: Erythema, swelling, and warmth of the right pointer finger and thumb that extends to the mid hand on the corea and dorsal sides. Atraumatic, negative for cords or calf pain. Neurovascular unremarkable. Neuro: Awake, alert, oriented. Cranial nerves II through XII unremarkable. Cerebellum unremarkable. Motor and sensory unremarkable throughout. Exam nonfocal. Notes: Diagnostics: CBC, CMP, lactate, blood culture x 2 , x-ray right hand Therapeutics: 1g Vancomycin IV 30mg Toradol IV Prescriptions: Impression: Cellulitis of hand Plan: Patient will be admitted to observation for IV antibiotics for cellulitis Definitive disposition and diagnosis as appropriate pending reevaluation and review of above. right first finger Pain Score (Numeric/FACES): 10 - Related Data Allergies Allergy/AdvReac Type Severity Reaction Status Date / Time No Known Allergies Allergy Verified 01/09/19 10:24 Home Meds: Home Meds . [No Known Home Meds] 01/08/19 [History] Past Medical History - Past Health History Medical/Surgical History: Denies Medical/Surgical History - Past Surgical History Musculoskeletal Surgical History: Reports: Arthroscopic Knee Other Musculoskeletal Surgeries/Procedures:: Left knee pain Social & Family History - Family History Family Medical History: Noncontributory - Tobacco Use Smoking Status *Q: Never Smoker - Caffeine Use Caffeine Use: Reports: None - Recreational Drug Use Recreational Drug Use: No ED ROS GENERAL - Review of Systems Review Of Systems: Comprehensive ROS is negative, except as noted in HPI. ED EXAM, SKIN/RASH Exam: See Below (see dictation) Course - Vital Signs Last Recorded V/S: Last Vital Signs Temp 98.2 F 01/09/19 10:21 Pulse 108 H 01/09/19 10:21 Resp 18 01/09/19 10:21 BP 101/65 01/09/19 10:21 Pulse Ox 98 01/09/19 10:21 - Orders/Labs/Meds Orders: Active Orders 24 hr Category Date Time Status Admission Status [Patient Status] [ADT] Stat ADT 01/09/19 12:07 Ordered CULTURE BLOOD [BC] Stat Lab 01/09/19 10:38 Received CULTURE BLOOD [BC] Stat Lab 01/09/19 11:00 Received Sodium Chloride 0.9% [Saline Flush] Med 01/09/19 10:28 Active 10 ml FLUSH ASDIRECTED PRN Sodium Chloride 0.9% [Saline Flush] Med 01/09/19 10:28 Active 2.5 ml FLUSH ASDIRECTED PRN Vancomycin 1 gm Med 01/09/19 10:44 Active Sodium Chloride 0.9% [Normal Saline (AdvBag)] 250 ml IV ONETIME Blood Culture x2 Reflex Set [OM.PC] Stat Oth 01/09/19 10:28 Ordered Saline Lock Insert [OM.PC] Stat Oth 01/09/19 10:28 Ordered Medication Orders Vancomycin HCl 1 gm/ Sodium (Chloride) 250 mls @ 166 mls/hr IV ONETIME ONE Stop: 01/09/19 12:14 Last Admin: 01/09/19 11:05 Dose: 166 mls/hr Sodium Chloride (Saline Flush) 10 ml FLUSH ASDIRECTED PRN PRN Reason: Keep Vein Open Sodium Chloride (Saline Flush) 2.5 ml FLUSH ASDIRECTED PRN PRN Reason: Keep Vein Open Labs: Laboratory Tests 01/09/19 01/09/19 01/09/19 Range/Units 10:38 10:38 10:38 WBC 17.08 H (4.0-11.0) K/uL RBC 4.77 (4.50-5.90) M/uL Hgb 15.3 (13.0-17.0) g/dL Hct 42.2 (38.0-50.0) % MCV 88.5 (80.0-98.0) fL MCH 32.1 H (27.0-32.0) pg MCHC 36.3 (31.0-37.0) g/dL RDW Std Deviation 40.7 (28.0-62.0) fl RDW Coeff of Kailash 13 (11.0-15.0) % Plt Count 346 (150-400) K/uL MPV 10.40 (7.40-12.00) fL Neut % (Auto) 78.2 (48.0-80.0) % Lymph % (Auto) 11.5 L (16.0-40.0) % Gove % (Auto) 9.3 (0.0-15.0) % Eos % (Auto) 0.8 (0.0-7.0) % Baso % (Auto) 0.2 (0.0-1.5) % Neut # (Auto) 13.4 H (1.4-5.7) K/uL Lymph # (Auto) 2.0 (0.6-2.4) K/uL Gove # (Auto) 1.6 H (0.0-0.8) K/uL Eos # (Auto) 0.1 (0.0-0.7) K/uL Baso # (Auto) 0.0 (0.0-0.1) K/uL Nucleated RBC % 0.0 /100WBC Nucleated RBCs # 0 K/uL Lactate 1.3 (0.20-2.00) mmol/L Sodium 139 (136-148) mmol/L Potassium 3.0 L (3.5-5.1) mmol/L Chloride 101 (98-107) mmol/L Carbon Dioxide 23.5 (21.0-32.0) mmol/L BUN 17 (7.0-18.0) mg/dL Creatinine 1.0 (0.8-1.3) mg/dL Est Cr Clr Drug Dosing 102.40 mL/min Estimated GFR (MDRD) > 60.0 ml/min Glucose 93 (74-106) mg/dL Calcium 9.2 (8.5-10.1) mg/dL Total Bilirubin 0.9 (0.2-1.0) mg/dL AST 54 H (15-37) IU/L ALT 57 (14-63) IU/L Alkaline Phosphatase 102 (46-116) U/L Total Protein 8.3 H (6.4-8.2) g/dL Albumin 4.2 (3.4-5.0) g/dL Globulin 4.1 H (2.6-4.0) g/dL Albumin/Globulin Ratio 1.0 (0.9-1.6) Meds: Medications Generic Name Dose Route Start Last Admin Trade Name Freq PRN Reason Stop Dose Admin Vancomycin HCl 1 gm/ Sodium 250 mls @ 166 mls/hr 01/09/19 10:44 01/09/19 11: 05 Chloride IV 01/09/19 12:14 166 mls/hr ONETIME ONE Administration Sodium Chloride 10 ml 01/09/19 10:28 Saline Flush FLUSH ASDIRECTED PRN Keep Vein Open Sodium Chloride 2.5 ml 01/09/19 10:28 Saline Flush FLUSH ASDIRECTED PRN Keep Vein Open Discontinued Medications Generic Name Dose Route Start Last Admin Trade Name Freq PRN Reason Stop Dose Admin Ketorolac Tromethamine 30 mg 01/09/19 10:56 01/09/19 11:04 Toradol IVPUSH 01/09/19 10:57 30 mg ONETIME ONE Administration Departure - Departure Time of Disposition: 12:08 Disposition: Refer to Observation Condition: Good Clinical Impression: Cellulitis - Discharge Information Referrals: PCP,None [Primary Care Provider] - Forms: ED Department Discharge - My Orders Last 24 Hours: My Active Orders 01/09/19 10:28 Sodium Chloride 0.9% [Saline Flush] 10 ml FLUSH ASDIRECTED PRN Sodium Chloride 0.9% [Saline Flush] 2.5 ml FLUSH ASDIRECTED PRN Blood Culture x2 Reflex Set [OM.PC] Stat Saline Lock Insert [OM.PC] Stat 01/09/19 10:38 CULTURE BLOOD [BC] Stat 01/09/19 10:44 Vancomycin 1 gm Sodium Chloride 0.9% [Normal Saline (AdvBag)] 250 ml IV ONETIME 01/09/19 11:00 CULTURE BLOOD [BC] Stat 01/09/19 12:07 Admission Status [Patient Status] [ADT] Stat - Assessment/Plan Last 24 Hours: My Active Orders 01/09/19 10:28 Sodium Chloride 0.9% [Saline Flush] 10 ml FLUSH ASDIRECTED PRN Sodium Chloride 0.9% [Saline Flush] 2.5 ml FLUSH ASDIRECTED PRN Blood Culture x2 Reflex Set [OM.PC] Stat Saline Lock Insert [OM.PC] Stat 01/09/19 10:38 CULTURE BLOOD [BC] Stat 01/09/19 10:44 Vancomycin 1 gm Sodium Chloride 0.9% [Normal Saline (AdvBag)] 250 ml IV ONETIME 01/09/19 11:00 CULTURE BLOOD [BC] Stat 01/09/19 12:07 Admission Status [Patient Status] [ADT] Stat
[2019-01-09] MEDS ORDERED: Ketorolac 30 MG/ML SDV IVPUSH ONE (10:56)
[2019-01-09 11:10] LABS: BLOOD UREA NITROGEN,BUN 17 mg/dL (7.0-18.0); CARBON DIOXIDE,CO2 23.5 mmol/L (21.0-32.0); CHLORIDE,CL 101 mmol/L (98-107); GLUCOSE RANDOM 93 mg/dL (74-106); SODIUM,NA 139 mmol/L (136-148)
--- NOTE | 2019-01-09 11:42 | CR ---
INDICATION: Right hand pain. Cellulitis. TECHNIQUE: Three views right hand. FINDINGS: Deformity of the right 5th metacarpal neck likely related to prior fracture. Rounded benign lucency right 3rd metacarpal head. 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 No evidence of osteomyelitis. Small lucency in the right 1st metacarpal distally. Moderate to prominent soft tissue swelling right index finger likely related to the underlying cellulitis with soft tissue swelling extending into the base of the hand between the thumb and index finger. Remainder negative. Dictated by Zan Smith MD @ Jan 09 2019 11:38AM Signed by Dr. Zan Smith @ Jan 09 2019 11:40AM
[2019-01-09] MEDS ORDERED: Ertapenem 1 GM Vial IM ONE (12:22)
== END 2019-01-09 12:45 | disposition other institution (70) ==
LOC: MW.ED 10:13 → UNDOADMOB 12:07 → MW.MS 12:07 → MW.ED 12:45
DX: L03.011 Cellulitis of right finger (principal); L03.113 Cellulitis of right upper limb
CPT/HCPCS: 36415; 73130; 80053; 83605; 85025; 87040; 96365; 96372; 96374; 99284; J1335; J1885; J2001; J3370; J7050

== ENCOUNTER 2019-04-16 14:12 | Emergency (ER) | payer SELFPAY ==
--- NOTE | 2019-04-16 15:03 | EDM.PDOC ---
ED HPI GENERAL MEDICAL PROBLEM - General Chief Complaint: Upper Extremity Injury/Pain Stated Complaint: HURT RT HAND Time Seen by Provider: 04/16/19 14:59 Source of Information: Reports: Patient History Limitations: Reports: No Limitations - History of Present Illness INITIAL COMMENTS - FREE TEXT/NARRATIVE: HISTORY AND PHYSICAL: History of present illness: Patient is a 38-year-old male who presents to the emergency room with complaints of pain to his ulnar aspect of his right hand. He states a few days ago he hit his hand against a fridge and since that time has had pain. He does have a history of a previous boxer's fracture and states "anytime I hit it or bump it it becomes painful". Patient denies hitting his head or having any loss of consciousness. Denies any other extremity involvement. He denies any fever, chills, headache, change in vision, syncope or near syncope. Denies any chest pain, back pain, shortness of breath or cough. Denies any GI or symptoms. Patient has been eating and drinking appropriately. Review of systems: As per history of present illness and below otherwise all systems reviewed and negative. Past medical history: As per history of present illness and as reviewed below otherwise noncontributory. Surgical history: As per history of present illness and as reviewed below otherwise noncontributory. Social history: See social history for further information Family history: As per history of present illness and as reviewed below otherwise noncontributory. Physical exam: General: Well-developed and well-nourished 38-year-old male. Alert and oriented. Nontoxic-appearing and in no acute distress. HEENT: Atraumatic, normocephalic, pupils equal and reactive bilaterally, negative for conjunctival pallor or scleral icterus, mucous membranes moist, TMs normal bilaterally, throat clear, neck supple, nontender, trachea midline. No drooling or trismus noted. No meningeal signs. No hot potato voice noted. Lungs: Clear to auscultation, breath sounds equal bilaterally, chest nontender. Heart: S1S2, regular rate and rhythm without overt murmur Abdomen: Soft, nondistended, nontender. Negative for masses or hepatosplenomegaly. Negative for costovertebral tenderness. Skin: Intact, warm, dry. No lesions or rashes noted. Extremities: Pain with palpation of the DIP joint of the right fifth digit. There is some obvious swelling at the base of the finger, unsure if this is chronic or acute. The skin is intact without erythema or open skin. Good flexion and extension of the fingers and wrist. No pain in the wrist or forearm. Strong radial pulse. Capillary refill less than 3 seconds. Moves all extremities per self without difficulty or deficits, negative for cords or calf pain. Neurovascular unremarkable. Neuro: Awake, alert, oriented. Cranial nerves II through XII unremarkable. Cerebellum unremarkable. Motor and sensory unremarkable throughout. Exam nonfocal. Notes: X-ray shows possible subacute navicular bone fracture. Slightly displaced and angulated distal right fifth metacarpal fracture. Fracture within the base of the fourth metacarpal with soft tissue swelling. DME for the right hand, fiberglass splint, ulnar gutter secured with Rolando wrap. Patient will need this on until he follows up with an orthopedic provider/Hand Surgeon for further care of fracture. Medication and supportive care measures were reviewed and discussed. Voices understanding and is agreeable to plan of care. Denies any further questions or concerns at this time. Diagnostics: X-ray Therapeutics: Custom fiberglass splint Prescription: [place] (#20) Impression: Metacarpal fracture, right Plan: 1. Rest, ice, elevate the affected extremity. Please wear the splint until cleared by Hand Surgeon 2. Tylenol and/or Ibuprofen as needed for pain management. [place] for moderate to severe pain. This medication may cause drowsiness so do not take it while driving or needing to be functioning outside of the house. 3. Follow up with the Hand Surgeon next week for further care and management ( may require surgery). Return to the ED as needed and as discussed. Definitive disposition and diagnosis as appropriate pending reevaluation and review of above. right hand Pain Score (Numeric/FACES): 7 - Related Data Allergies Allergy/AdvReac Type Severity Reaction Status Date / Time No Known Allergies Allergy Verified 04/16/19 14:43 Home Meds: Home Meds . [No Known Home Meds] 01/08/19 [History] Past Medical History - Past Health History Medical/Surgical History: Denies Medical/Surgical History - Past Surgical History Musculoskeletal Surgical History: Reports: Arthroscopic Knee Other Musculoskeletal Surgeries/Procedures:: Left knee pain Social & Family History - Family History Family Medical History: Noncontributory - Tobacco Use Smoking Status *Q: Never Smoker - Caffeine Use Caffeine Use: Reports: None - Recreational Drug Use Recreational Drug Use: No Review of Systems - Review of Systems Review Of Systems: Comprehensive ROS is negative, except as noted in HPI. ED EXAM, GENERAL - Physical Exam Exam: See Below (See dictation) Course - Vital Signs Last Recorded V/S: Last Vital Signs Temp 98.1 F 04/16/19 14:41 Pulse 95 04/16/19 14:41 Resp 16 04/16/19 14:41 BP 118/85 04/16/19 14:41 Pulse Ox 98 04/16/19 14:41 - Orders/Labs/Meds Orders: Active Orders 24 hr Category Date Time Status DME for Discharge [COMM] Stat Oth 04/16/19 15:17 Ordered Departure - Departure Time of Disposition: 15:30 Disposition: Home, Self-Care 01 Clinical Impression: Fracture, metacarpal Qualifiers: Encounter type: initial encounter Metacarpal bone: fifth Fracture type: closed Metacarpal location: unspecified portion of metacarpal Fracture alignment: displaced Laterality: right Qualified Code(s): S62.306A - Unspecified fracture of fifth metacarpal bone, right hand, initial encounter for closed fracture - Discharge Information Instructions: Metacarpal Fracture, [id number] Referrals: PCP,None [Primary Care Provider] - Forms: ED Department Discharge Additional Instructions: The following information is given to patients seen in the emergency department who are being discharged to home. This information is to outline your options for follow-up care. We provide all patients seen in our emergency department with a follow-up referral. The need for follow-up, as well as the timing and circumstances, are variable depending upon the specifics of your emergency department visit. If you don't have a primary care physician on staff, we will provide you with a referral. We always advise you to contact your personal physician following an emergency department visit to inform them of the circumstance of the visit and for follow-up with them and/or the need for any referrals to a consulting specialist. The emergency department will also refer you to a specialist when appropriate. This referral assures that you have the opportunity for follow-up care with a specialist. All of these measure are taken in an effort to provide you with optimal care, which includes your follow-up. Under all circumstances we always encourage you to contact your private physician who remains a resource for coordinating your care. When calling for follow-up care, please make the office aware that this follow-up is from your recent emergency room visit. If for any reason you are refused follow-up, please contact the [facility] Emergency Department at and asked to speak to the emergency department charge nurse. Dr Webber (Hand Surgeon) [address], [id number] 1. Rest, ice, elevate the affected extremity. Please wear the splint until cleared by Hand Surgeon 2. Tylenol and/or Ibuprofen as needed for pain management. [place] for moderate to severe pain. This medication may cause drowsiness so do not take it while driving or needing to be functioning outside of the house. 3. Follow up with the Hand Surgeon next week for further care and management ( may require surgery). Return to the ED as needed and as discussed. Sepsis Event Note - Evaluation Sepsis Screening Result: No Definite Risk - Focused Exam Vital Signs: Vital Signs Temp Pulse Resp BP Pulse Ox 04/16/19 14:41 98.1 F 95 16 118/85 98 Date Exam was Performed: 04/16/19 Time Exam was Performed: 15:28 - My Orders Last 24 Hours: My Active Orders 04/16/19 15:17 DME for Discharge [COMM] Stat - Assessment/Plan Last 24 Hours: My Active Orders 04/16/19 15:17 DME for Discharge [COMM] Stat
--- NOTE | 2019-04-16 15:23 | CR ---
Right hand: 3 views of the right hand were obtained as well as coned-down lateral view of the right 5th finger. Slightly displaced and angulated distal right 5th metacarpal fracture is noted. Soft tissue swelling is seen. Joint spaces are preserved. Mild sclerotic area is noted within the distal pole of the navicular bone and difficult to exclude a subacute partially healing fracture. Additional fracture is seen within the base of the 4th metacarpal with slight angulation. No additional fracture or other abnormality is appreciated. Impression: 1. Possible subacute navicular bone fracture. 2. Slightly displaced and angulated distal right 5th metacarpal fracture. 3. Fracture within the base of the 4th metacarpal. 4. Soft tissue swelling. Diagnostic code #3 This report was dictated in [place] Standard Time
== END 2019-04-16 15:55 | disposition home or self-care (01) ==
LOC: MW.ED 14:12
DX: S62.336A Displaced fracture of neck of fifth metacarpal bone, right hand, initial encounter for closed fracture (principal); S62.314A Displaced fracture of base of fourth metacarpal bone, right hand, initial encounter for closed fracture; W22.8XXA Striking against or struck by other objects, initial encounter
CPT/HCPCS: 29125; 73130-26-RT; 73130-RT; 99283; 99283-25